=== PATIENT | female | born 1990 | race African-American/Black ===

== ENCOUNTER 2022-10-24 19:48 | Emergency (ER) | payer MEDICAID ==
[~2022-10-24] VITALS: Ht 162.6 cm; Wt 91.5 kg
[2022-10-24 20:30] LABS: CLARITY URINE CLOUDY (CLEAR); COLOR URINE YELLOW (YELLOW); KETONES URINE 1+ (NEGATIVE); LEUKOCYTE ESTERASE URINE 1+ (NEGATIVE); NITRITE URINE NEGATIVE (NEGATIVE); OCCULT BLOOD URINE NEGATIVE (NEGATIVE); PROTEIN URINE 1+ (NEGATIVE); SPECIFIC GRAVITY URINE 1.033 (1.005-1.030)
[2022-10-24] MEDS ORDERED: VISCOUS LIDOCAINE 2% 15 ML UDC PO STA (21:08)
[2022-10-24] MEDS ORDERED: MAGNESIUM/ALUMINUM HYDROXIDE/SIMETHICONE 30ML UDC PO STA (21:08)
[2022-10-24] MEDS ORDERED: ONDANSETRON 4MG ODT PO STA (21:08)
[2022-10-24] MEDS ORDERED: DICYCLOMINE 10 MG/5 ML ORAL SYR PO STA (21:08)
[2022-10-24 21:15] VITALS: BP 118/73
[2022-10-24 21:31] LABS: BASOPHILS % 0.1 % (0.0-2.0); EOSINOPHILS % 0.1 % (0.0-5.0); HEMATOCRIT. 40.1 % (36.0-48.0); HEMOGLOBIN. 13.4 g/dL (12.0-16.0); LYMPHOCYTES % 18.7 % (20.0-50.0); MEAN CORPUSCULAR HEMOGLOBIN 30.6 pg (28.0-32.0); MEAN CORPUSCULAR VOLUME 91.6 fL (81.0-99.0); MONOCYTES % 6.3 % (2.0-8.0); NEUTROPHILS % 74.8 % (40.0-76.0); PLATELET 262 x1000/uL (130-400); RED BLOOD CELL COUNT 4.38 mill/uL (4.2-5.4); RED CELL DISTRIBUTION WIDTH 13.4 % (11.6-14.6)
[2022-10-24 21:35] LABS: CHLORIDE 106 mEq/L (98-107)
[2022-10-24] MEDS ORDERED: ONDA4TAB11 PO (22:17)
[2022-10-24] MEDS ORDERED: NITR-87 MT (22:17)
== END 2022-10-24 22:25 | disposition home or self-care (01) ==
LOC: ER 19:48
DX: A08.4 Viral intestinal infection, unspecified (principal)
CPT/HCPCS: 36415; 80053; 81003; 81025; 83690; 85025; 99284; Q0162